=== PATIENT | male | born 1990 | race Caucasian/White ===

== ENCOUNTER 2022-09-24 13:33 | Emergency (ER) | payer OTHER ==
[~2022-09-24] VITALS: Ht 193 cm; Wt 113.6 kg
[2022-09-24] MEDS ORDERED: KETOROLAC 60MG 2ML VIAL IM ONE (15:05)
[2022-09-24] MEDS ORDERED: methocarbamoL 750 MG TAB PO ONE (15:05)
[2022-09-24] MEDS ORDERED: LIDOCAINE 4% CREAM 5GM (LMX4) TOP ONE (15:05)
[2022-09-24 15:10] LABS: APPEARANCE, URINE MANUAL CLEAR (CLEAR); COLOR, URINE MANUAL YELLOW (YELLOW)
[2022-09-24 15:11] LABS: BILIRUBIN, URINE MANUAL NEGATIVE (NEGATIVE); BLOOD URINE MANUAL NEGATIVE (NEGATIVE); GLUCOSE, URINE (UA) MANUAL NEGATIVE (NEGATIVE); KETONE, URINE MANUAL NEGATIVE (NEGATIVE); LEUKOCYTE ESTERASE, URINE MAN NEGATIVE (NEGATIVE); NITRITE, URINE MANUAL NEGATIVE (NEGATIVE); PROTEIN, URINE MANUAL NEGATIVE (NEGATIVE); SPECIFIC GRAVITY,URINE MANUAL 1.025 (1.002-1.035); UROBILINOGEN, URINE MANUAL NORMAL (NORMAL)
[2022-09-24] MEDS ORDERED: HYDR-3713 PO (16:40)
[2022-09-24] MEDS ORDERED: ASPE4PAD TOP (16:40)
[2022-09-24] MEDS ORDERED: IBUP-1022 PO (16:40)
[2022-09-24] MEDS ORDERED: METH-1165 PO (16:40)
[2022-09-24] MEDS ORDERED: NORCO, ANEXSIA 5/325MG TABLET (HYDROcodone/ACETAMINOPHEN) PO ONE (16:45)
[2022-09-24 17:00] VITALS: BP 130/78
== END 2022-09-24 17:02 | disposition home or self-care (01) ==
LOC: M ED 13:33
DX: S39.92XA Unspecified injury of lower back, initial encounter (principal); S30.0XXA Contusion of lower back and pelvis, initial encounter; W10.9XXA Fall (on) (from) unspecified stairs and steps, initial encounter; F17.200 Nicotine dependence, unspecified, uncomplicated
CPT/HCPCS: 72110; 81002; 96372; 99283; J1885

== ENCOUNTER 2023-06-14 22:22 | Emergency (ER) | payer OTHER ==
[~2023-06-14] VITALS: Ht 195.6 cm; Wt 113.6 kg
[~2023-06-14 22:22] MED LIST: ASPE4PAD TOP; HYDR-3713 PO; IBUP-1022 PO; METH-1165 PO
[2023-06-14 22:45] VITALS: TEMP 98
[2023-06-14 23:15] VITALS: BP 149/82; O2SAT 99
[2023-06-14] MEDS ORDERED: KETOROLAC 30 MG/ML 1ML VIAL As Ordered ONE (23:29)
[2023-06-14] MEDS ORDERED: KETOROLAC 30 MG/ML 1ML VIAL IV ONE (23:30)
[2023-06-14] MEDS ORDERED: methocarbamoL 500 MG TAB PO ONE (23:30)
[2023-06-14] MEDS ORDERED: KETO10TAB PO (23:33)
[2023-06-14] MEDS ORDERED: METH-1165 PO (23:33)
== END 2023-06-14 23:48 | disposition home or self-care (01) ==
LOC: M ED 22:22
DX: S00.93XA Contusion of unspecified part of head, initial encounter (principal); M62.838 Other muscle spasm; V95 Accident to powered aircraft causing injury to occupant; W61.92XA Struck by other birds, initial encounter; Y99.1 Military activity; Z79.1 Long term (current) use of non-steroidal anti-inflammatories (NSAID); Z79.899 Other long term (current) drug therapy
CPT/HCPCS: 70450; 72125; 96374; 99284; J1885